=== PATIENT | female | born 1955 | race Two or more races ===

== ENCOUNTER 2018-04-07 19:25 | Emergency (ER) | payer SELFPAY ==
--- NOTE | 2018-04-07 19:38 | EDPHY ---
H & P Stated Complaint: High BP, Headache, dizzy, vomiting, visiting from [facility] Time Seen by Provider: 04/07/18 19:38 - Personal History Current Tetanus Diphtheria and Acellular Pertussis (TDAP): No - Medical/Surgical History Hx Asthma: No Hx Chronic Respiratory Disease: No Hx Diabetes: No Hx Cardiac Disease: No Hx Renal Disease: No Hx Cirrhosis: No Hx Alcoholism: No Hx HIV/AIDS: No Hx Splenectomy or Spleen Trauma: No Other PMH: Denies - Social History Smoking Status: Never smoked Constitutional: Initial Vital Signs Temperature (C) 36.9 C 04/07/18 19:28 Heart Rate 82 04/07/18 19:28 Respiratory Rate 18 04/07/18 19:28 Blood Pressure 217/106 H 04/07/18 19:28 O2 Sat (%) 97 04/07/18 19:28 O2 Delivery Mode Room Air Allergies/Adverse Reactions: No Known Allergies Allergy (Unverified 04/07/18 19:27) Home Medications: Medication Instructions Recorded Cephalexin [Keflex (RX)] 500 mg PO TID #20 cap 04/07/18 Lisinopril 20 mg PO DAILY #30 tablet 04/07/18 Medical Decision Making - Diagnostics Imaging Results: Imaging Impressions Head CT 04/07/18 19:45 Impression: 1. Negative for mass or hemorrhage. 2. White matter low-attenuation probably reflects small vessel disease and may be secondary to hypertension. Results called and discussed with Dean Ragsdale MD on 04/07/2018 at 20:21. Imaging: Discussed imaging studies w/ bingo caller Radiologist, I viewed and interpreted images myself ED Course/Re-evaluation: CHIEF COMPLAINT: Headache, hypertension HISTORY OF PRESENT ILLNESS: The patient is a Maltese-speaking 62 y/o female arriving with her family members complaining of a headache, nausea, and hypertension. Her headache wraps around the crown of her head. She is visiting from [facility] and arrived here one week ago. She denies vomiting, abdominal pain, fever, urinary symptoms, weakness, paresthesias. She does not use any medications usually and has no diagnosed medical conditions. REVIEW OF SYSTEMS: A comprehensive 10 system review of systems is otherwise negative aside from elements mentioned in the history of present illness and medical decision making. PHYSICAL EXAM: HR, BP 214/102, O2 Sat, RR. Temp noted General Appearance: Alert, well hydrated, appropriate, and non-toxic appearing. Head: Atraumatic without scalp tenderness or obvious injury Eyes: Pupils equal, round, reactive to light and accommodation, EOMI, no trauma , no injection. Nose: Atraumatic, no rhinorrhea, clear. Throat: Mucus membranes moist. Neck: Supple, nontender, no lymphadenopathy. Respiratory: No retractions, no distress, no wheezes, and no accessory muscle use. Lungs are clear to auscultation bilaterally. Cardiovascular: Regular rate and rhythm, no murmurs, rubs, or gallops. Good capillary refill all extremities. Gastrointestinal: Abdomen is soft, nontender, non-distended, no masses, no rebound, no guarding, no peritoneal signs. Musculoskeletal: Normal active ROM of all extremities, atraumatic. Neurological: Alert, appropriate, and interactive. The patient has non-focal cranial nerves, motor, sensory, and cerebellar exam. Skin: No rashes, good turgor, no nodules on palpation. Past medical history: Denies Past surgical history: Denies Family history: Noncontributory Social history: Nonsmoker. Visiting from [facility]. Friends/family at bedside. DIAGNOSTICS/PROCEDURES/CRITICAL CARE TIME: The 12 lead EKG was interpreted by myself. Sinus mechanism rate 81, no ischemia. See hard copy and/or "tracemaster" electronic copy for interpretation. Head CT: negative DIFFERENTIAL DIAGNOSIS: The differential diagnosis for the patient's headache included but was not limited to subarachnoid hemorrhage, migraine headache, tension headache and infectious causes such as meningitis, pharyngitis and sinusitis. MEDICAL DECISION MAKING: This is a 62 y/o female with no known medical history who presents hypertensive and complaining of a headache and nausea. Exam is unremarkable. Nonfocal neuro exam. Will evaluate for end-organ damage related to hypertension. Plan for IV, labs, UA, EKG, head CT. 2020: BP 201/104. Labs unremarkable. Head CT negative. 20mg PO lisinopril and 30mg IV Toradol ordered. 2100: BP 177/131. Reevaluated patient and discussed findings. No evidence of hypertensive emergency or urgency. UA shows UTI, first dose of Keflex administered here and prepack provided. Patient will be discharged home with script for lisinopril with PCP follow up. - Data Points Laboratory Results: Laboratory Results 04/07/18 19:50 04/07/18 19:50 04/07/18 04/07/18 04/07/18 20:06 19:55 19:50 WBC RBC Hgb Hct MCV MCH MCHC RDW Plt Count MPV Neut % (Auto) Lymph % (Auto) [place] % (Auto) Eos % (Auto) Baso % (Auto) Nucleat RBC Rel Count Absolute Neuts (auto) Absolute Lymphs (auto) Absolute Monos (auto) Absolute Eos (auto) Absolute Basos (auto) Absolute Nucleated RBC Immature Gran % Immature Gran # Sodium 132 mEq/L L mEq/L (135-145) Potassium 4.1 mEq/L mEq/L (3.5-5.2) Chloride 100 mEq/L mEq/L (97-110) Carbon Dioxide 23 mEq/l mEq/l (22-31) Anion Gap 9 mEq/L mEq/L (6-14) BUN 9 mg/dL mg/dL (7-23) Creatinine 0.5 mg/dL L mg/dL (0.6-1.0) Estimated GFR > 60 Glucose 94 mg/dL mg/dL (70-100) Calcium 9.1 mg/dL mg/dL (8.5-10.4) POC Troponin I 0.00 ng/mL ng/mL (0.00-0.08) Urine Color PALE YELLOW Urine Appearance CLEAR Urine pH 7.0 (5.0-7.5) Ur Specific [place] 1.006 (1.002-1.030) Urine Protein NEGATIVE (NEGATIVE) Urine Ketones NEGATIVE (NEGATIVE) Urine Blood NEGATIVE (NEGATIVE) Urine Nitrate NEGATIVE (NEGATIVE) Urine Bilirubin NEGATIVE (NEGATIVE) Urine Urobilinogen NEGATIVE EU EU (0.2-1.0) Ur Leukocyte Esterase 3+ H (NEGATIVE) Urine RBC 1-3 /hpf /hpf (0-3) Urine WBC 15-25 /hpf H /hpf (0-3) Ur Epithelial Cells TRACE /lpf /lpf (NONE-1+) Urine Glucose NEGATIVE (NEGATIVE) 04/07/18 19:50 WBC 6.80 10^3/uL 10^3/uL (3.80-9.50) RBC 4.24 10^6/uL 10^6/uL (4.18-5.33) Hgb 12.6 g/dL g/dL (12.6-16.3) Hct 37.8 % L % (38.0-47.0) MCV 89.2 fL fL (81.5-99.8) MCH 29.7 pg pg (27.9-34.1) MCHC 33.3 g/dL g/dL (32.4-36.7) RDW 13.2 % % (11.5-15.2) Plt Count 327 10^3/uL 10^3/uL (150-400) MPV 9.5 fL fL (8.7-11.7) Neut % (Auto) 58.4 % % (39.3-74.2) Lymph % (Auto) 33.4 % % (15.0-45.0) [place] % (Auto) 5.9 % % (4.5-13.0) Eos % (Auto) 1.6 % % (0.6-7.6) Baso % (Auto) 0.4 % % (0.3-1.7) Nucleat RBC Rel Count 0.0 % % (0.0-0.2) Absolute Neuts (auto) 3.97 10^3/uL 10^3/uL (1.70-6.50) Absolute Lymphs (auto) 2.27 10^3/uL 10^3/uL (1.00-3.00) Absolute Monos (auto) 0.40 10^3/uL 10^3/uL (0.30-0.80) Absolute Eos (auto) 0.11 10^3/uL 10^3/uL (0.03-0.40) Absolute Basos (auto) 0.03 10^3/uL 10^3/uL (0.02-0.10) Absolute Nucleated RBC 0.00 10^3/uL 10^3/uL (0-0.01) Immature Gran % 0.3 % % (0.0-1.1) Immature Gran # 0.02 10^3/uL 10^3/uL (0.00-0.10) Sodium Potassium Chloride Carbon Dioxide Anion Gap BUN Creatinine Estimated GFR Glucose Calcium POC Troponin I Urine Color Urine Appearance Urine pH Ur Specific [place] Urine Protein Urine Ketones Urine Blood Urine Nitrate Urine Bilirubin Urine Urobilinogen Ur Leukocyte Esterase Urine RBC Urine WBC Ur Epithelial Cells Urine Glucose Medications Given: Discontinued Medications Cephalexin HCl (Keflex) 500 mg PO EDNOW ONE PRN Reason: Protocol Stop: 04/07/18 20:54 Last Admin: 04/07/18 20:57 Dose: Not Given Ketorolac Tromethamine (Toradol) 30 mg IVP EDNOW ONE Stop: 04/07/18 20:24 Last Admin: 04/07/18 20:29 Dose: 30 mg Lisinopril (Zestril) 20 mg PO EDNOW ONE Stop: 04/07/18 20:22 Last Admin: 04/07/18 20:29 Dose: 20 mg Point of Care Test Results: Chemistry 04/07/18 19:55 POC Troponin I 0.00 ng/mL ng/mL (0.00-0.08) Departure - Departure Disposition: Home, Routine, Self-Care Clinical Impression: Hypertension Qualifiers: Hypertension type: unspecified Qualified Code(s): I10 - Essential (primary) hypertension Headache Qualifiers: Headache type: other headache syndrome Qualified Code(s): G44.89 - Other headache syndrome UTI (urinary tract infection) Qualifiers: Urinary tract infection type: site unspecified Hematuria presence: without hematuria Qualified Code(s): N39.0 - Urinary tract infection, site not specified Condition: Good Instructions: Cephalexin (By mouth), Lisinopril (By mouth), Urinary Tract Infection in Women (ED), Acute Headache (ED), Hypertension (ED) Additional Instructions: 1. Take lisinopril daily as prescribed for hypertension. 2. Take Keflex as prescribed for UTI. Be sure to complete the entire prescription. 3. Follow up with primary care provider in the next week to establish care and discuss further management of your hypertension. 4. Return to the ED for any worsening of condition. Referrals: [facility],. [Clinic] - As per Instructions Prescriptions: Cephalexin [Keflex (RX)] 500 mg PO TID #20 cap Lisinopril 20 mg PO DAILY #30 tablet Report Scribed for: Dean Ragsdale Report Scribed by: Tati Stevenson Date of Report: 04/07/18 Time of Report: 20:26
[2018-04-07 20:01] LABS: PLATELET COUNT 327 10^3/uL (150-400)
--- NOTE | 2018-04-07 20:13 | CPEKG ---
Test Reason : OPEN Blood Pressure : / mmHG Vent. Rate : 081 BPM Atrial Rate : 079 BPM P-R Int : 131 ms QRS Dur : 101 ms QT Int : 375 ms P-R-T Axes : 055 004 034 degrees QTc Int : 436 ms Sinus rhythm Confirmed by Dean Ragsdale ([id number]) on 04/07/2018 8:13:08 PM Referred By: Dean Ragsdale Confirmed By:Dean Ragsdale
[2018-04-07] MEDS ORDERED: LISINOPRIL 20 MG TAB PO ONE (20:21)
[2018-04-07] MEDS ORDERED: KETOROLAC 30 MG/1 ML SDV IVP ONE (20:23)
[2018-04-07] MEDS ORDERED: CEPHALEXIN 500 MG CAP PO ONE (20:53)
[2018-04-07] MEDS ORDERED: CEPHALEXIN 500MG PREPACK#4 BTL TAKEHOME ONE (20:57)
[2018-04-07 21:24] VITALS: BP 177/131
== END 2018-04-07 21:24 | disposition home or self-care (01) ==
DX: I10 Essential (primary) hypertension (principal); G44.89 Other headache syndrome; N39.0 Urinary tract infection, site not specified; R11.0 Nausea
CPT/HCPCS: 84484-ER; 96374; J1885

== ENCOUNTER 2018-04-09 02:09 | Emergency (ER) | payer SELFPAY ==
--- NOTE | 2018-04-09 03:16 | EDPHY ---
H & P Stated Complaint: Headache Time Seen by Provider: 04/09/18 03:16 HPI/ROS: HPI CHIEF COMPLAINT: Headache with recent ER visit yesterday. HISTORY OF PRESENT ILLNESS: 62-year-old female presents emergency room by private vehicle with her family for headache. Headache is located in the vertex of her head. She was seen here yesterday with hypertension, diagnosed with hypertension UTI. Her blood pressure here tonight is much improved. She was 200/100 previous ER visit she has 150s over 80s at this time. She did have associated nausea with vomiting today. She has been taking her antibiotic. Denies any neck pain, denies fever, denies chest pain or shortness of breath. Does complain of a throbbing headache to the top of her vertex of her head. Her son is at bedside who translates appropriate. Past Medical History: Hypertension, recent diagnosed with UTI. Past Surgical History: No recent surgery Social History: Visiting from [facility]. Family History: Noncontributory ROS REVIEW OF SYSTEMS: 10 Systems were reviewed and negative with the exception of the elements mentioned in the history of present illness. Exam Constitutional appears well nontoxic no acute distress triage nursing summary reviewed, vital signs reviewed, awake/alert. Eyes normal conjunctivae and sclera, EOMI, PERRLA. HENT head and neck exam atraumatic normal inspection, atraumatic, moist mucus membranes, no epistaxis, neck supple/ no meningismus, no raccoon eyes. Respiratory clear to auscultation bilaterally, normal breath sounds, no respiratory distress, no wheezing. Cardiovascular rate normal, regular rhythm, no murmur, no edema, distal pulses normal. Gastrointestinal soft, non-tender, no rebound, no guarding, normal bowel sounds, no distension, no pulsatile mass. Genitourinary no CVA tenderness. Musculoskeletal no midline vertebral tenderness, full range of motion, no calf swelling, no tenderness of extremities, no meningismus, good pulses, neurovascularly intact. Skin pink, warm, & dry, no rash, skin atraumatic. Neurologic awake, alert and oriented x 3, AAOx3, moves all 4 extremities equally, motor intact, sensory intact, CN II-XII intact, normal cerebellar, normal vision, normal speech. Psychiatric normal mood/affect. Heme/Lymph/Immune no lymphadenopathy. Differential Diagnosis: Includes but is not limited to in a particular order tension headache, cluster headache, migraine headache, intracranial bleed Medical Decision Making: Plan for this patient IV establishment IV fluid bolus , IV Toradol for pain control, 1 g of Tylenol for pain control, Decadron, CT scan head without contrast, basic blood work and re-evaluate. Reason for repeat CT scan worsening headache. She has a normal neurological exam here in emergency room. Re-evaluation: 0432: Family is declining CT scan head without contrast. Patient now requesting be discharged home. On re-examination at this time she has normal neurological exam. Patient's vitals are stable. Blood pressure is appropriate. She is taking her urinary tract infection antibiotics. I discussed return precautions with the family since they do not want a CT scan of the head return emergency room worsening headache, fever, vomiting or not doing well. Son at bedside is comfortable this plan. 0518: Patient re-evaluated she is requesting be discharged home. Her neurological exam is unremarkable. Multiple family members have been down the [facility] asking nursing staff for them to please discharge them. I did go reexamine her headache is gone. She is resting comfortably she is requesting discharge home. She declined the CT scan of her head Vital signs are stable. Normal neurological exam cranial nerves intact here in the emergency room Return precautions discussed with the patient It was noted on her blood work her sodium is slightly low. I discussed this with the family return emergency room if worsening symptoms questions or concerns. Source: Patient - Personal History Current Tetanus/Diphtheria Vaccine: No Current Tetanus Diphtheria and Acellular Pertussis (TDAP): No - Medical/Surgical History Hx Asthma: No Hx Chronic Respiratory Disease: No Hx Diabetes: No Hx Cardiac Disease: No Hx Renal Disease: No Hx Cirrhosis: No Hx Alcoholism: No Hx HIV/AIDS: No Hx Splenectomy or Spleen Trauma: No Other PMH: Htn - Social History Smoking Status: Never smoked Constitutional: Initial Vital Signs Temperature (C) 36.7 C 04/09/18 02:13 Heart Rate 89 04/09/18 02:13 Respiratory Rate 18 04/09/18 02:13 Blood Pressure 139/102 H 04/09/18 02:13 O2 Sat (%) 98 04/09/18 02:13 O2 Delivery Mode Room Air Allergies/Adverse Reactions: No Known Allergies Allergy (Unverified 04/07/18 19:27) Home Medications: Medication Instructions Recorded Cephalexin [Keflex (RX)] 500 mg PO TID #20 cap 04/07/18 Lisinopril 20 mg PO DAILY #30 tablet 04/07/18 Medical Decision Making - Data Points Laboratory Results: Laboratory Results 04/09/18 03:33 04/09/18 03:33 04/09/18 04/09/18 03:33 03:33 WBC 8.59 10^3/uL 10^3/uL (3.80-9.50) RBC 4.59 10^6/uL 10^6/uL (4.18-5.33) Hgb 13.7 g/dL g/dL (12.6-16.3) Hct 38.9 % % (38.0-47.0) MCV 84.7 fL fL (81.5-99.8) MCH 29.8 pg pg (27.9-34.1) MCHC 35.2 g/dL g/dL (32.4-36.7) RDW 12.6 % % (11.5-15.2) Plt Count 356 10^3/uL 10^3/uL (150-400) MPV 9.1 fL fL (8.7-11.7) Neut % (Auto) 79.5 % H % (39.3-74.2) Lymph % (Auto) 14.9 % L % (15.0-45.0) [place] % (Auto) 4.2 % L % (4.5-13.0) Eos % (Auto) 0.5 % L % (0.6-7.6) Baso % (Auto) 0.3 % % (0.3-1.7) Nucleat RBC Rel Count 0.0 % % (0.0-0.2) Absolute Neuts (auto) 6.83 10^3/uL H 10^3/uL (1.70-6.50) Absolute Lymphs (auto) 1.28 10^3/uL 10^3/uL (1.00-3.00) Absolute Monos (auto) 0.36 10^3/uL 10^3/uL (0.30-0.80) Absolute Eos (auto) 0.04 10^3/uL 10^3/uL (0.03-0.40) Absolute Basos (auto) 0.03 10^3/uL 10^3/uL (0.02-0.10) Absolute Nucleated RBC 0.00 10^3/uL 10^3/uL (0-0.01) Immature Gran % 0.6 % % (0.0-1.1) Immature Gran # 0.05 10^3/uL 10^3/uL (0.00-0.10) Sodium 125 mEq/L L mEq/L (135-145) Potassium 4.2 mEq/L mEq/L (3.5-5.2) Chloride 91 mEq/L L mEq/L (97-110) Carbon Dioxide 23 mEq/l mEq/l (22-31) Anion Gap 11 mEq/L mEq/L (6-14) BUN 5 mg/dL L mg/dL (7-23) Creatinine 0.5 mg/dL L mg/dL (0.6-1.0) Estimated GFR > 60 Glucose 114 mg/dL H mg/dL (70-100) Calcium 9.6 mg/dL mg/dL (8.5-10.4) Medications Given: Discontinued Medications Acetaminophen (Tylenol) 1,000 mg PO EDNOW ONE Stop: 04/09/18 03:22 Last Admin: 04/09/18 03:23 Dose: 1,000 mg Dexamethasone (Decadron Injection) 10 mg IVP EDNOW ONE Stop: 04/09/18 03:24 Last Admin: 04/09/18 03:43 Dose: 10 mg Sodium Chloride (Ns) 1,000 mls @ 0 mls/hr IV EDNOW ONE; Wide Open PRN Reason: Protocol Stop: 04/09/18 03:23 Last Admin: 04/09/18 03:44 Dose: 1,000 mls Ketorolac Tromethamine (Toradol) 15 mg IVP EDNOW ONE Stop: 04/09/18 03:24 Last Admin: 04/09/18 03:44 Dose: 15 mg Departure - Departure Disposition: Home, Routine, Self-Care Clinical Impression: Headache Condition: Good Instructions: Acute Headache (ED), Hyponatremia (ED) Additional Instructions: 1. Return emergency room if you have worsening headache or not doing well 2. Your sodium was noted to be slightly low here in the emergency room this should be rechecked in a few days 3. Return to the ER if worse. Referrals: NONE *PRIMARY CARE P,. [Primary Care Provider] - As per Instructions
[2018-04-09] MEDS ORDERED: ACETAMINOPHEN 500 MG TAB ONE ×2 (03:17→03:18)
[2018-04-09] MEDS ORDERED: ACETAMINOPHEN 500 MG TAB PO ONE (03:21)
[2018-04-09] MEDS ORDERED: NS 1,000 ML IV ONE (03:22)
[2018-04-09] MEDS ORDERED: KETOROLAC 30 MG/1 ML SDV IVP ONE (03:23)
[2018-04-09] MEDS ORDERED: DEXAMETHASONE 10 MG/ML VIAL IVP ONE (03:23)
[2018-04-09 03:45] LABS: PLATELET COUNT 356 10^3/uL (150-400)
[2018-04-09 05:45] VITALS: BP 142/90
== END 2018-04-09 05:26 | disposition home or self-care (01) ==
DX: R51 Headache (principal); E86.9 Volume depletion, unspecified; I10 Essential (primary) hypertension
CPT/HCPCS: 96374; J1100; J1885